=== PATIENT | female | born 1995 | race African-American/Black ===

== ENCOUNTER 2020-03-14 11:37 | Emergency (ER) | payer OTHER ==
[~2020-03-14] VITALS: Ht 157.5 cm; Wt 49.0 kg
--- NOTE | 2020-03-14 11:49 | NUR ---
PT STATES SHE WAS CHANGING BANDAID (RT FINGER BIOPSY), FELT LIGHTHEADED & DIZZY, THEN PASSED OUT. HIT HEAD: ABRASION TO RT EYEBROW. PER EMS, SHORT SYNCOPAL EPISODE WHEN THEY DID ORTHO VS. IV 18G LAC. NS 400ML INFUSED BY ARRIVAL. RONEL PIKE AT BS FOR EXAM. PT REPORTS BP IS USUALLY LOW. PT A&OX4, RESP EVEN & UNLABORED, SPEECH CLEAR, SKIN WNL. LAST ORAL INTAKE: FOOD 1999 LAST NOC, WATER 0100 TODAY. LMP:1 WK AGO.
[2020-03-14 12:35] LABS: ALBUMIN 3.8 g/dL (3.4-5.0); ANION GAP 4 mmol/L (5-15); CALCIUM 8.6 mg/dL (8.5-10.1); CHLORIDE 111 mmol/L (98-107); CREATININE 0.78 mg/dL (0.55-1.02)
[2020-03-14 12:39] LABS: MEAN CORPUSCULAR HEMOGLOBIN 29.5 pg (27.0-34.8); MEAN CORPUSCULAR HGB CONC 32.9 g/dL (32.4-35.8); MEAN CORPUSCULAR VOLUME 89.9 fL (80-100); MEAN PLATELET VOLUME 8.4 fL (7.4-10.4); PLATELET COUNT 228 x10^3/uL (130-400); RED BLOOD COUNT 4.31 x10^6/uL (3.82-5.3); RED CELL DISTRIBUTION WIDTH 14.1 % (9.6-15.2)
--- NOTE | 2020-03-14 12:59 | NUR ---
PT SITTING ON GURNEY, TALKING ON CELL PHONE. SPEECH CLEAR, RESP EVEN & UNLABORED, ABLE TO SPEAK IN COMPLETE SENTENCES.
[2020-03-14 13:17] LABS: BASOPHILS # (AUTO) 0.02 x10^3/uL (0-0.1); BASOPHILS % (AUTO) 0 % (0-1); EOSINOPHILS # (AUTO) 0.02 x10^3/uL (0-0.4); EOSINOPHILS % (AUTO) 0 % (1-7); LYMPHOCYTES # (AUTO) 2.07 x10^3/uL (1-3.4); LYMPHOCYTES % (AUTO) 27 % (22-44); MD SCAN; MONOCYTES # (AUTO) 0.47 x10^3/uL (0.2-0.8); MONOCYTES % (AUTO) 6 % (2-9); NEUTROPHILS # (AUTO) 4.98 x10^3/uL (1.8-6.8); NEUTROPHILS % (AUTO) 66 % (42-75)
[2020-03-14 14:05] VITALS: BP 91/46
== END 2020-03-14 14:07 | disposition home or self-care (01) ==
LOC: ED 13:09
DX: R55 Syncope and collapse (principal); R42 Dizziness and giddiness; R00.1 Bradycardia, unspecified
CPT/HCPCS: 36415; 80048; 82040; 83735; 84703; 85025; 93005; 99284